=== PATIENT | male | born 1980 | race African-American/Black ===

== ENCOUNTER 2020-12-26 08:11 | Emergency (ER) | payer BC, SELFPAY ==
[2020-12-26] MEDS ORDERED: Naproxen 500 MG TAB ONE (08:54)
== END 2020-12-26 09:20 | disposition home or self-care (01) ==
LOC: NAV ERS 08:11
DX: S63.502A Unspecified sprain of left wrist, initial encounter (principal); S63.602A Unspecified sprain of left thumb, initial encounter; X50.1XXA Overexertion from prolonged static or awkward postures, initial encounter

== ENCOUNTER 2021-01-03 06:38 | Emergency (ER) | payer BC | END 2021-01-03 07:19 | disposition home or self-care (01) | LOC: NAV ERS 06:38 | DX: S63.502A Unspecified sprain of left wrist, initial encounter (principal); X58.XXXA Exposure to other specified factors, initial encounter | CPT/HCPCS: 99281 ==